=== PATIENT | male | born 1985 | race Caucasian/White ===

== ENCOUNTER 2017-12-08 08:03 | Emergency (ER) | payer BC ==
--- NOTE | 2017-12-08 08:29 | EDM.PDOC ---
ED HPI GENERAL MEDICAL PROBLEM - General Chief Complaint: General Stated Complaint: TESTICAL PAIN Time Seen by Provider: 12/08/17 08:29 Source of Information: Reports: Patient - History of Present Illness INITIAL COMMENTS - FREE TEXT/NARRATIVE: HISTORY AND PHYSICAL: History of present illness: [Patient presents with testicle pain bilateral left greater than right history of varicocele, denies trauma or injury, denies new sexual contact No fever nausea vomiting chills sweats ] Review of systems: As per history of present illness and below otherwise all systems reviewed and negative. Past medical history: As per history of present illness and as reviewed below otherwise noncontributory. Surgical history: As per history of present illness and as reviewed below otherwise noncontributory. Social history: No reported history of drug or alcohol abuse. Family history: As per history of present illness and as reviewed below otherwise noncontributory. Physical exam: HEENT: Atraumatic, normocephalic, pupils reactive, negative for conjunctival pallor or scleral icterus, mucous membranes moist, throat clear, neck supple, nontender, trachea midline. Lungs: Clear to auscultation, breath sounds equal bilaterally, chest nontender. Heart: S1S2, regular, negative for clicks, rubs, or JVD. Abdomen: Soft, nondistended, nontender. Negative for masses or hepatosplenomegaly. Negative for costovertebral tenderness. Pelvis: Stable nontender. Genitourinary: VasoSeal noted on exam on the left no mass lesion identified tender epididymis on the right with varicocele Rectal: Deferred. Extremities: Atraumatic, negative for cords or calf pain. Neurovascular unremarkable. Neuro: Awake, alert, oriented. Cranial nerves II through XII unremarkable. Cerebellum unremarkable. Motor and sensory unremarkable throughout. Exam nonfocal. Diagnostics: [UA GC ChlamydiScrotum and contents ] Therapeutics: Ceftin 250 mg IM Azithromycin 1 g by mouth Bactrim double strength by mouth twice a day #20 no refill Impression: Epididymitis Definitive disposition and diagnosis as appropriate pending reevaluation and review of above. Penis Pain Score (Numeric/FACES): 7 - Related Data Allergies Allergy/AdvReac Type Severity Reaction Status Date / Time No Known Allergies Allergy Verified 12/08/17 08:12 Home Meds: Home Meds . [No Known Home Meds] 09/30/18 [History] ED ROS GENERAL - Review of Systems Review Of Systems: See Below ED EXAM, GENERAL - Physical Exam Exam: See Below Course - Vital Signs Last Recorded V/S: Last Vital Signs Temp 97.7 F 12/08/17 08:09 Pulse 91 12/08/17 08:09 Resp 18 12/08/17 08:09 BP 156/104 H 12/08/17 08:09 Pulse Ox 99 12/08/17 08:09 - Orders/Labs/Meds Orders: Active Orders 24 hr Category Date Time Status Scrotal Duplex Ltd [US] Routine Exams 12/08/17 Taken Scrotum and Contents [US] Stat Exams 12/08/17 08:28 Taken CHLAMYDIA AND GONORRHEA BY TMA Stat Lab 12/08/17 09:20 Received CULTURE URINE [] Stat Lab 12/08/17 10:38 Ordered Labs: Laboratory Tests 12/08/17 Range/Units 09:20 Urine Color YELLOW Urine Appearance CLEAR Urine pH 6.5 (5.0-8.0) Ur Specific [place] 1.025 (1.001-1.035) Urine Protein NEGATIVE (NEGATIVE) mg/dL Urine Glucose (UA) NEGATIVE (NEGATIVE) mg/dL Urine Ketones NEGATIVE (NEGATIVE) mg/dL Urine Occult Blood NEGATIVE (NEGATIVE) Urine Nitrite NEGATIVE (NEGATIVE) Urine Bilirubin NEGATIVE (NEGATIVE) Urine Urobilinogen 0.2 (<2.0) EU/dL Ur Leukocyte Esterase NEGATIVE (NEGATIVE) Urine RBC 0-1 (0-2/HPF) Urine WBC 0-2 (0-5/HPF) Ur Epithelial Cells RARE (NONE-FEW) Urine Bacteria RARE (NEGATIVE) Urine Mucus LIGHT (NONE-MOD) Meds: Medications Discontinued Medications Generic Name Dose Route Start Last Admin Trade Name Christiano PRN Reason Stop Dose Admin Azithromycin 1,000 mg 12/08/17 09:51 12/08/17 10:23 Zithromax PO 12/08/17 09:52 1,000 mg NOW STA Administration Ceftriaxone Sodium 250 mg/ 1 mls @ 1 mls/sec 12/08/17 09:51 12/08/17 10:24 Lidocaine HCl IM 12/08/17 09:52 1 mls/sec ONETIME ONE Administration Departure - Departure Time of Disposition: 10:40 Disposition: Home, Self-Care 01 Condition: Good Clinical Impression: Epididymitis - Discharge Information Forms: ED Department Discharge Additional Instructions: The following information is given to patients seen in the emergency department who are being discharged to home. This information is to outline your options for follow-up care. We provide all patients seen in our emergency department with a follow-up referral. The need for follow-up, as well as the timing and circumstances, are variable depending upon the specifics of your emergency department visit. If you don't have a primary care physician on staff, we will provide you with a referral. We always advise you to contact your personal physician following an emergency department visit to inform them of the circumstance of the visit and for follow-up with them and/or the need for any referrals to a consulting specialist. The emergency department will also refer you to a specialist when appropriate. This referral assures that you have the opportunity for follow-up care with a specialist. All of these measure are taken in an effort to provide you with optimal care, which includes your follow-up. Under all circumstances we always encourage you to contact your private physician who remains a resource for coordinating your care. When calling for follow-up care, please make the office aware that this follow-up is from your recent emergency room visit. If for any reason you are refused follow-up, please contact the [facility] emergency department at and asked to speak to the emergency department charge nurse. - My Orders Last 24 Hours: My Active Orders 12/08/17 Scrotal Duplex Ltd [US] Routine 12/08/17 08:28 Scrotum and Contents [US] Stat 12/08/17 09:20 CHLAMYDIA AND GONORRHEA BY TMA Stat 12/08/17 10:38 CULTURE URINE [RM] Stat - Assessment/Plan Last 24 Hours: My Active Orders 12/08/17 Scrotal Duplex Ltd [US] Routine 12/08/17 08:28 Scrotum and Contents [US] Stat 12/08/17 09:20 CHLAMYDIA AND GONORRHEA BY TMA Stat 12/08/17 10:38 CULTURE URINE [RM] Stat
[2017-12-08] MEDS ORDERED: cefTRIAXone 250 MG in Lidocaine 1% 1 ML IM ONE (09:51)
[2017-12-08] MEDS ORDERED: Azithromycin 250 MG Tab PO STA (09:51)
--- NOTE | 2017-12-09 18:16 | US ---
EXAM DATE: 12/08/17 PATIENT'S AGE: 32 Patient: ARLIN BASS Facility: [place], [place] Site . Site : 1985 Study: US Testicle [id number] 9:41:23 AM Ordering Physician: Doctor Lam Final Report: CLINICAL HISTORY: Testicular pain bilateral TECHNIQUE: Wiley scale imaging was performed of the scrotum. In addition color Doppler and spectral Doppler analysis was performed of the testes. FINDINGS: The testes demonstrate normal arterial and venous blood flow on color Doppler and spectral Doppler analysis. The testes have uniform echogenicity with no evidence of a suspicious mass or area of inflammation. The right testis measures 4.2 x 2.3 x 2.9 cm in size and the left testis measures 3.7 x 2.3 x 3.3 cm. The epididymis appears normal bilaterally. Small to moderate left varicoceles. No hydroceles. Mild right varicoceles. IMPRESSION: 1. No intratesticular mass. Normal blood flow to both testes. 2. Small to moderate left varicoceles. Small right-sided varicoceles. Dictated by Shelly Mcnamara MD @ Dec 08 2017 10:18AM (Electronic Signature) Report Signed by Proxy. PHYLLIS
--- NOTE | 2017-12-09 18:16 | US ---
EXAM DATE: 12/08/17 PATIENT'S AGE: 32 Patient: ARLIN BASS Facility: [place], [place] Site . Site : 1985 Study: US Testicle [id number]/30/[id number] 9:41:23 AM Ordering Physician: Doctor Lam Final Report: CLINICAL HISTORY: Testicular pain bilateral TECHNIQUE: Wiley scale imaging was performed of the scrotum. In addition color Doppler and spectral Doppler analysis was performed of the testes. FINDINGS: The testes demonstrate normal arterial and venous blood flow on color Doppler and spectral Doppler analysis. The testes have uniform echogenicity with no evidence of a suspicious mass or area of inflammation. The right testis measures 4.2 x 2.3 x 2.9 cm in size and the left testis measures 3.7 x 2.3 x 3.3 cm. The epididymis appears normal bilaterally. Small to moderate left varicoceles. No hydroceles. Mild right varicoceles. IMPRESSION: 1. No intratesticular mass. Normal blood flow to both testes. 2. Small to moderate left varicoceles. Small right-sided varicoceles. Dictated by Shelly Mcnamara MD @ Dec 08 2017 10:18AM (Electronic Signature) Report Signed by Proxy. PHYLLIS
== END 2017-12-08 11:04 | disposition home or self-care (01) ==
LOC: MW.ED 08:03
DX: N45.1 Epididymitis (principal)
CPT/HCPCS: 76870; 81001; 87086; 87491; 87591; 93976; 96372; 99284; A9270; J0696; J2001; 99283